=== PATIENT | female | born 1985 | race African-American/Black ===

== ENCOUNTER 2017-06-12 22:49 | Emergency (ER) | payer MEDICAID ==
[~2017-06-12] VITALS: Ht 160 cm; Wt 60.0 kg
[2017-06-12] MEDS ORDERED: POTASSIUM CHLORIDE 20 MEQ CONTROLLED RELEASE TAB PO ONE (23:15)
--- NOTE | 2017-06-13 01:13 | RADRPT ---
EXAM DATE/TIME: 06/12/2017 23:52 [place] COMPARISON: No previous studies available for comparison. INDICATIONS : Bleeding with . LAB(S): [facility] MEDICAL HISTORY : . SURGICAL HISTORY : section. ENCOUNTER: Initial ACUITY: 2 days PAIN SCORE: 0/10 LOCATION: Bilateral pelvis MEASUREMENTS: UTERUS: 8.4 x 6.5 x 5.4 cm ENDOMETRIAL STRIPE: 7 mm RIGHT OVARY: 5.2 x 2.9 x 2.8 cm LEFT OVARY: 3.4 x 3.5 x 1.8 cm FREE FLUID: Yes Cul-de-sac, bilateral adnexa CROWN RUMP LENGTH: NOT VISUALIZED = WKS DAYS FHR: NOT VISUALIZED VISUALIZED BPM FINDINGS: A collection of fluid typical of a gestational sac is seen within the uterine cavity and measurements correspond to a gestational age of approximate 6 weeks 3 days. However, no perceptible yolk sac or f etal pole. There is a 26 mm cyst with small amount of debris and thin septation of the right ovary. There is a 13 mm hypoechoic but non-vascular mass of the left ovary typical of a debris filled cyst. Complex moderate amount of free fluid seen in the pelvic cul-de-sac. CONCLUSION: 1. Apparent intrauterine gestational sac at 6 weeks 3 days gestational age but no associated yolk sac or pole. Blighted ovum possible. 2. Mildly complex cysts of both ovaries as above and also moderate amount of fluid and debris in the pelvic cul-de-sac. These findings are nonspecific but there are no features convincing for ectopic. P erhaps an ovarian cyst has recently ruptured. Denilson Gibson MD on June 13, 2017 at 1:07 Board Certified Radiologist. This report was verified electronically.
--- NOTE | 2017-06-13 01:43 | PD ---
HPI Chief Complaint: Related Problem Time Seen by Provider: 23:08 Travel History International Travel<30 days: No Contact w/Intl Traveler<30days: No Traveled to known affect area: No History of Present Illness HPI Patient's 32 years old. She is 3 para 3 and is thought to be approximately 6 weeks . Today she complains of lower abdominal pain radiating to the back coupled with nausea and diarrhea. She was sent to this ER from the [facility] due to need for pelvic ultrasound. Patient has had vaginal bleeding since last 2 days. Pelvic ultrasound imaging performed at outside hospital showed intrauterine yolk sac with no heart rate/heart activity. She denies dysuria and frequency. She's had no abnormal discharge. No fever. PFSH Past Medical History Diminished Hearing: No Immunizations Current: No Tetanus Vaccination: > 5 Years Influenza Vaccination: No ?: Past Surgical History Section: Yes Social History Alcohol Use: Yes (OCCATIONALLY) Tobacco Use: Yes (BLACK N MILDS) Substance Use: Yes (POT DAILY (STOPPED WEDNESDAY)) Allergies-Medications (Allergen,Severity, Reaction): Coded Allergies: No Known Drug Allergies (Verified Allergy, Unknown, 06/12/17) Reported Meds & Prescriptions Reported Meds & Active Scripts Active No Active Prescriptions or Reported Medications Review of Systems Except as stated in HPI: all other systems reviewed are Neg General / Constitutional: No: Fever Physical Exam Narrative GENERAL: 32-year-old female pleasant well-nourished well-developed no acute distress SKIN: Focused skin assessment warm/dry. HEAD: Atraumatic. Normocephalic. EYES: Pupils equal and round. No scleral icterus. No injection or drainage. ENT: No nasal bleeding or discharge. Mucous membranes pink and moist. NECK: Trachea midline. No JVD. CARDIOVASCULAR: Regular rate and rhythm. No murmur appreciated. RESPIRATORY: No accessory muscle use. Clear to auscultation. Breath sounds equal bilaterally. GASTROINTESTINAL: Soft. No focus of tenderness. MUSCULOSKELETAL: No obvious deformities. No clubbing. No cyanosis. No edema. NEUROLOGICAL: Awake and alert. No obvious cranial nerve deficits. Motor grossly within normal limits. Normal speech. PSYCHIATRIC: Cooperative pleasant. Data Data Orders Orders Potassium Chloride (Kcl) (06/12/17 23:15) Complete Rh (06/12/17 23:08) Us Pelvis (Ques Pr/Ect)W Trans (06/12/17 ) Ed Discharge Order (06/13/17 01:43) Metronidazole (Flagyl) (06/13/17 01:45) [facility] Medical Decision Making Medical Screen Exam Complete: Yes Emergency Medical Condition: Yes Medical Record Reviewed: Yes Differential Diagnosis IUP, UTI, ectopic , ov torsion, appendicitis, TOA, cervicitis, BV, Trichomoniasis, ov cyst, hernia, mittelschmerz, pain from menstruation Narrative Course Urinalysis shows urinary trichomoniasis. Beta is 62,000 Last Impressions Pelvis Ultrasound 06/12/17 0000 Signed Impressions: Service Date/Time: Wednesday, June 12, 2017 23:52 - CONCLUSION: 1. Apparent intrauterine gestational sac at 6 weeks 3 days gestational age but no associated yolk sac or pole. Blighted ovum possible. 2. Mildly complex cysts of both ovaries as above and also moderate amount of fluid and debris in the pelvic cul-de-sac. These findings are nonspecific but there are no features convincing for ectopic. Perhaps an ovarian cyst has recently ruptured. Denilson Gibson MD The patient is resting comfortably and feels better, is alert and in no distress. The patients results and examination findings were discussed. The repeat examination is unremarkable and benign. The history, exam, diagnostic testing, and current condition do not suggest any significant pathology to warrant further testing, continued ED treatment, admission, or surgical evaluation at this point. The vital signs have been stable. The patient does not have uncontrollable pain, intractable vomiting, or other significant symptoms. The patient's condition is stable and appropriate for discharge. The patient will pursue further outpatient evaluation with a primary care physician or other designated or consulting physician as indicated in the discharge instructions. The patient expressed understanding and was agreeable with this plan. Diagnosis Primary Impression: Blighted ovum Referrals: [facility] 2 days Med/Other Pt SpecificInfo: No Change to Meds Scripts No Active Prescriptions or Reported Meds Disposition: DISCHARGE HOME Condition: Stable Samy Rodriguez MD Jun 13, 2017 01:43
[2017-06-13] MEDS ORDERED: metroNIDAZOLE 500 MG TAB PO ONE (01:45)
== END 2017-06-13 02:25 | disposition home or self-care (01) ==
LOC: NEPE 22:49
DX: O02.0 Blighted ovum and nonhydatidiform mole (principal); Z3A.01 Less than 8 weeks gestation of pregnancy
CPT/HCPCS: 76700; 76817; 80053; 81001; 84702; 85025; 86901; 96361; 96374; 96376; 99284; J2405; J7030